=== PATIENT | male | born 1970 | race Caucasian/White ===

== ENCOUNTER 2018-11-16 09:04 | Outpatient (CLI) | payer MEDICARE, MEDICAID ==
[2018-11-16 13:32] LABS: BASOPHILS % (AUTO) 0.5 %; EOSINOPHILS # (AUTO) 0.1 10^3/uL (0.0-0.7); EOSINOPHILS % (AUTO) 1.5 %; HGB - HEMOGLOBIN 15.6 g/dL (14.0-18.0); LYMPHOCYTES # (AUTO) 1.1 10^3/uL (1.5-3.5); LYMPHOCYTES % (AUTO) 18.4 %; MEAN CORPUSCULAR HEMOGLOBIN 32.4 pg (27.0-31.0); MEAN CORPUSCULAR HGB CONC 35.2 g/dL (32.0-36.0); MEAN CORPUSCULAR VOLUME 92.2 fL (80.0-94.0); MEAN PLATELET VOLUME 7.6 fL (7.4-11.4); MONOCYTES # (AUTO) 0.4 10^3/uL (0.0-1.0); MONOCYTES % (AUTO) 6.8 %; NEUTROPHILS # (AUTO) 4.2 10^3/uL (1.5-6.6); NEUTROPHILS % (AUTO) 72.8 %; PLT - PLATELET COUNT 333 10^3/uL (130-450); RED BLOOD COUNT 4.81 10^6/uL (4.70-6.10); RED CELL DISTRIBUTION WIDTH 13.6 % (12.0-15.0); WHITE BLOOD COUNT 5.7 x10^3/uL (4.8-10.8)
[2018-11-16 14:18] LABS: ALBUMIN 4.2 g/dL (3.2-5.5); ALBUMIN/GLOBULIN RATIO 1.3 (1.0-2.2); ALKALINE PHOSPHATASE 67 IU/L (42-121); ALT ALANINE AMINOTRANSFERASE 21 IU/L (10-60); AST ASPARTATE AMINOTRANSFERASE 21 IU/L (10-42); BILIRUBIN,TOTAL 0.7 mg/dL (0.2-1.0); BUN - BLOOD UREA NITROGEN 12 mg/dL (6-20); CALCIUM 9.1 mg/dL (8.5-10.3); CARBON DIOXIDE - CO2 29 mmol/L (21-32); CHLORIDE 102 mmol/L (101-111); CHOL/HDL RATIO 4.6 (<5.0); CHOLESTEROL 216 mg/dL; CREATININE 0.9 mg/dL (0.6-1.2); GFR - MDRD 90 (>89); GLUCOSE 90 mg/dL (70-100); HDL CHOLESTEROL 47 mg/dL; LDL CHOLESTEROL,CALCULATED 155 mg/dL; LDL/HDL RATIO 3.3 (<3.6); SODIUM 135 mmol/L (135-145); TOTAL PROTEIN 7.4 g/dL (6.7-8.2); VLDL CHOLESTEROL 14 mg/dL
[2018-11-16 17:56] LABS: HB2 TOTAL 16.4 g/dL; HEMOGLOBIN A1C 0.62 g/dL; HEMOGLOBIN A1C % 5.6 % (4.6-6.2)
== END 2018-11-16 23:59 | disposition home or self-care (01) ==
LOC: LAB.N 09:04
PROVIDERS: ATTEND Licensed Practical Nurse
DX: Z79.899 Other long term (current) drug therapy (principal)
CPT/HCPCS: 36415; 80053; 80061; 83036; 83721; 84443; 85025

== ENCOUNTER 2019-09-09 21:22 | Emergency (ER) | payer MEDICARE, MEDICAID ==
--- NOTE | 2019-09-09 22:04 | ED Physician Documentation ---
PD HPI ABD PAIN - Stated complaint Stated Complaint: CONSTIPATION - Chief complaint Chief Complaint: Abd Pain - History obtained from History obtained from: Patient, Family - History of Present Illness Timing - onset: How many days ago (4) Timing - duration: Days (4) Timing - details: Gradual onset Severity Comments: moderate constipation Quality: Fullness/distended Location: All over / everywhere Radiation: Other (none) Improved by: Other (nothing) Worsened by: Eating Associated symptoms: Nausea, Constipation, Near syncope / syncope. No: Fever, Vomiting, Hematemesis, Diarrhea, Melena, Hematochezia, Dysuria, Hematuria, Chest pain Similar symptoms before: Has not had sx before Recently seen: Not recently seen - Treatment prior to arrival Treatment prior to arrival: dulcolax and seroquel Review of Systems Ten Systems: 10 systems reviewed and negative Constitutional: denies: Fever Cardiac: reports: Reviewed and negative Respiratory: reports: Reviewed and negative GI: reports: Abdominal Pain, Nausea, Constipation. denies: Abdominal Swelling, Vomiting, Diarrhea, Hematemesis, Bloody / black stool : reports: Reviewed and negative Skin: reports: Reviewed and negative Musculoskeletal: reports: Reviewed and negative Neurologic: reports: Reviewed and negative Psychiatric: reports: Anxiety Endocrine: reports: Reviewed and negative PD PAST MEDICAL HISTORY - Past Medical History Past Medical History: Yes - Past Surgical History Past Surgical History: Yes General: Splenectomy - Present Medications Home Medications: Ambulatory Orders Medication Instructions Recorded Confirmed Aripiprazole [Abilify] 15 mg DAILY 04/15/14 04/15/14 QUEtiapine [SEROquel] 200 mg QPM 04/15/14 04/15/14 Polyethylene Glycol 3350 [Miralax] 17 gm PO DAILY PRN #1 bottle 09/09/19 - Allergies Allergies/Adverse Reactions: Allergies Allergy/AdvReac Type Severity Reaction Status Date / Time No Known Drug Allergies Allergy Verified 04/15/14 12:51 - Social History Does the pt smoke?: Yes Smoking Status: Current every day smoker Does the pt drink ETOH?: No Does the pt have substance abuse?: No - Immunizations Immunizations are current?: No Immunizations: TDAP >10years/unknown PD ED PE NORMAL - Vitals Vital signs reviewed: Yes - General General: Alert and oriented X 3, No acute distress, Well developed/nourished, Other (pt is very sleepy) - HEENT HEENT: Atraumatic, Pharynx benign - Neck Neck: Supple, no meningeal sign - Cardiac Cardiac: RRR - Respiratory Respiratory: No respiratory distress - Abdomen Abdomen: Soft, Non distended, Other (mild diffuse tenderness ) - Male Male : Deferred - Derm Derm: Normal color, Warm and dry, No rash - Extremities Extremities: No deformity - Neuro Neuro: Alert and oriented X 3 Eye Opening: Spontaneous Motor: Obeys Commands Verbal: Oriented GCS Score: 15 - Psych Psych: Normal mood, Other (flat affect ) PD ED PE EXPANDED - Rectal Rectal: Normal Tone, Other (no fecal impaction, no blood ). No: Mass Results - Vitals Vitals: Vital Signs - 24 hr 09/10/19 00:07 Heart Rate 71 Respiratory 16 Rate Blood Pressure 122/86 H O2 Saturation 99 Oxygen O2 Source Room air - EKG (time done) 21:28 Rate: Rate (enter#) (66) Rhythm: NSR Gard[place]: Normal Intervals: Normal PA QRS: Normal Ischemia: Other (minimal ST elevation in anterior leads, ST depression minimal in inferior leads, no t wave abnormalities, no stemi ) Computer interpretation: Agree with computer PD MEDICAL DECISION MAKING - ED course Complexity details: reviewed results, re-evaluated patient, considered differential, d/w patient, d/w family ED course: 49 y/o M with hx and exam as documented. Likely syncopal episode from either overdosing on his seroquel today or straining to have a BM. He has normal EKg and normal sinus rhythm on the monitor. Thus suspect this was medication related. His exam here is benign except pt is very sedate. He admits to taking 4 of his seroquel for sleep to help with his abdominal discomfort from constipation. Pt here has no evidence of impaction. He was given an enema and had a large BM with relief of his constipation and his pain has resolved. Pt is stable for discharge with continued supportive care for constipation. Departure - Departure Disposition: 01 Home, Self Care Clinical Impression: Constipation Qualifiers: Constipation type: unspecified constipation type Qualified Code(s): K59.00 - Constipation, unspecified Medication adverse effect Qualifiers: Encounter type: initial encounter Qualified Code(s): T50.905A - Adverse effect of unspecified drugs, medicaments and biological substances, initial encounter Condition: Stable Record reviewed to determine appropriate education?: Yes Instructions: ED Constipation Follow-Up: your, doctor [Other] Prescriptions: Polyethylene Glycol 3350 [Miralax] 17 gm PO DAILY PRN #1 bottle PRN Reason: Constipation Comments: You were evaluated in the ED for constipation which improved with an enema. Take miralax as well as your stool softener for constipation. Follow up with your primary care doctor. If you have worsening abdominal pain or vomiting return to the ED. Discharge Date/Time: 09/10/19 00:16
[2019-09-09] MEDS ORDERED: SOAP SUDS ENEMA 1 EACH RC ONE (22:28)
[2019-09-10 00:08] VITALS: BP 122/86
== END 2019-09-10 00:16 | disposition home or self-care (01) ==
LOC: ED 21:22
DX: K59.00 Constipation, unspecified (principal); R55 Syncope and collapse; T43.591A Poisoning by other antipsychotics and neuroleptics, accidental (unintentional), initial encounter; F17.200 Nicotine dependence, unspecified, uncomplicated; G47.00 Insomnia, unspecified; F41.9 Anxiety disorder, unspecified
CPT/HCPCS: 93005; 99282; 99283; 99284; A9270

== ENCOUNTER 2019-09-10 01:47 | Outpatient (CLI) | payer MEDICARE, MEDICAID | END 2019-09-10 01:48 | disposition critical access hospital (66) | LOC: EMS 01:47 | PROVIDERS: ATTEND Surgery | DX: R68.89 Other general symptoms and signs (principal) | CPT/HCPCS: A0425; A0429 ==

== ENCOUNTER 2019-09-10 02:10 | Emergency (ER) | payer MEDICARE, MEDICAID ==
[2019-09-10] MEDS ORDERED: diphenhydrAMINE 25 MG CAPSULE PO STA (02:17)
--- NOTE | 2019-09-10 02:20 | ED Physician Documentation ---
History of Present Illness - Stated complaint Stated Complaint: DIFF SLEEPING/ MILD PSYCHOSIS - History obtained from History obtained from: Patient, EMS - History of Present Illness Timing: Chronic (for years) Severity Comments: moderate Quality: insomnia Radiates to: no pain or radiation Improved by: seroquel but he already took his dose earlier tonight Worsened by: he was in the ED earlier tonight which changed his sleep schedule and he took his seroquel too early so now doesn't know what to take for sleep Associated symptoms: insomnia, anxiety. reports his constipation and abdominal pain have resolved. - Treatment prior to arrival Treatment prior to arrival: seroquel earlier today Review of Systems Ten Systems: 10 systems reviewed and negative Constitutional: reports: Reviewed and negative Cardiac: reports: Reviewed and negative Respiratory: reports: Reviewed and negative GI: reports: Reviewed and negative : reports: Reviewed and negative Neurologic: reports: Reviewed and negative Psychiatric: reports: Anxiety, Insomnia Endocrine: reports: Reviewed and negative PD PAST MEDICAL HISTORY - Past Medical History Past Medical History: Yes Psych: Anxiety, Other (insomnia) - Past Surgical History Past Surgical History: Yes General: Splenectomy - Present Medications Home Medications: Ambulatory Orders Medication Instructions Recorded Confirmed Aripiprazole [Abilify] 15 mg DAILY 04/15/14 04/15/14 QUEtiapine [SEROquel] 200 mg QPM 04/15/14 04/15/14 Polyethylene Glycol 3350 [Miralax] 17 gm PO DAILY PRN #1 bottle 09/09/19 - Allergies Allergies/Adverse Reactions: Allergies Allergy/AdvReac Type Severity Reaction Status Date / Time No Known Drug Allergies Allergy Verified 04/15/14 12:51 - Social History Does the pt smoke?: Yes Smoking Status: Current every day smoker Does the pt drink ETOH?: No Does the pt have substance abuse?: No - Immunizations Immunizations are current?: No Immunizations: TDAP >10years/unknown PD ED PE NORMAL - Vitals Vital signs reviewed: Yes - General General: Alert and oriented X 3, No acute distress, Well developed/nourished - HEENT HEENT: Atraumatic, Pharynx benign - Neck Neck: Supple, no meningeal sign, No JVD - Cardiac Cardiac: RRR - Respiratory Respiratory: No respiratory distress - Abdomen Abdomen: Soft, Non tender, Non distended - Male Male : Deferred - Rectal Rectal: Deferred - Derm Derm: Normal color, Warm and dry, No rash - Extremities Extremities: No deformity - Neuro Neuro: Alert and oriented X 3, Normal speech Eye Opening: Spontaneous Motor: Obeys Commands Verbal: Oriented GCS Score: 15 - Psych Psych: Normal mood, Normal affect Results - Vitals Vitals: Vital Signs - 24 hr 09/10/19 02:19 Temperature 36.6 C Heart Rate 65 Respiratory 15 Rate Blood Pressure 117/88 H O2 Saturation 100 Oxygen O2 Source Room air PD MEDICAL DECISION MAKING - ED course Complexity details: considered differential, d/w patient ED course: 49 y/o M with hx of chronic insomnia reports it is worse today because he was in the ED earlier tonight for constipation and took his seroquel at the wrong time. Does not know what else he can take for sleep. Pt is known to me, I cared for him earlier tonight for constipation and pt was given an enema with relief of symptoms. He denies abdominal pain or constipation symptoms. He has melatonin at home but didn't take it. I advised he can try the melatonin and also try benadryl OTC for sleep. Given a dose of benadryl here. He is stable for discharge. Departure - Departure Disposition: 01 Home, Self Care Clinical Impression: Insomnia Qualifiers: Insomnia type: unspecified Qualified Code(s): G47.00 - Insomnia, unspecified Condition: Stable Record reviewed to determine appropriate education?: Yes Instructions: ED Insomnia Follow-Up: your, doctor [Other] - As Needed Comments: You were given some benadryl in the ED today for insomnia. In the future you should try taking your melatonin at home for sleep. Discharge Date/Time: 09/10/19 02:33
[2019-09-10 02:23] VITALS: BP 117/88
== END 2019-09-10 02:33 | disposition home or self-care (01) ==
LOC: EDUNIT# → ED 02:10
DX: G47.00 Insomnia, unspecified (principal); F41.9 Anxiety disorder, unspecified; F17.200 Nicotine dependence, unspecified, uncomplicated
CPT/HCPCS: 99282; 99284

== ENCOUNTER 2021-02-01 07:00 | Outpatient (CLI) | payer MEDICARE, MEDICAID ==
--- NOTE | 2021-02-01 10:56 | XRAY Report ---
PROCEDURE: Lumbar Spine 2 View INDICATIONS: LOW BACK PX TECHNIQUE: 3 views of the lumbar spine were acquired. COMPARISON: None. FINDINGS: Bones: 5 [id number] vertebrae are present. There is normal bony alignment. No vertebral body compression fractures. No suspicious bony lesions. Soft tissues: Overlying bowel gas pattern is normal. No suspicious soft tissue calcifications. IMPRESSION: No trauma found, source of current pain is not identified. Reviewed by: Uri Perez MD on 02/01/2021 10:55 AM PDT Approved by: Uri Perez MD on 02/01/2021 10:55 AM PDT Station ID: [id number]
== END 2021-02-01 23:59 | disposition home or self-care (01) ==
LOC: DI.N 07:00
PROVIDERS: ATTEND Family Medicine
DX: M54.5 Low back pain (principal)

== ENCOUNTER 2021-02-05 08:00 | Outpatient (CLI) | payer MEDICARE, MEDICAID | END 2021-02-05 23:59 | disposition home or self-care (01) | LOC: LAB.N 08:00 | PROVIDERS: ATTEND Family Medicine | DX: K52.9 Noninfective gastroenteritis and colitis, unspecified (principal) | CPT/HCPCS: 81599; 83630; 87045; 87046; 87329; 87427; 87493 ==

== ENCOUNTER 2021-08-03 08:50 | Outpatient (CLI) | payer MEDICARE, MEDICAID ==
[2021-08-03 14:44] LABS: H. PYLORIS ANTIGEN STL NEGATIVE (Negative)
== END 2021-08-03 23:59 ==
LOC: LAB.N 08:50
PROVIDERS: ATTEND Family Medicine
DX: R19.7 Diarrhea, unspecified (principal)
CPT/HCPCS: 83993; 87045; 87046; 87177; 87209; 87329; 87338; 87493

== ENCOUNTER 2022-02-03 09:04 | Outpatient (CLI) | payer MEDICARE, MEDICAID ==
[2022-02-03 10:18] VITALS: BP 115/73
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
== END 2022-02-03 09:05 | disposition home or self-care (01) ==
LOC: SC 09:04
PROVIDERS: ATTEND Nurse Practitioner Family
DX: G47.00 Insomnia, unspecified (principal); G47.8 Other sleep disorders; R41.89 Other symptoms and signs involving cognitive functions and awareness; F17.210 Nicotine dependence, cigarettes, uncomplicated
CPT/HCPCS: 99203; G0463; 99212

== ENCOUNTER 2022-02-21 20:40 | Outpatient (CLI) | payer MEDICARE, MEDICAID | END 2022-02-21 20:41 | disposition home or self-care (01) | LOC: SC 20:40 | PROVIDERS: ATTEND Nurse Practitioner Family | DX: G47.33 Obstructive sleep apnea (adult) (pediatric) (principal) | CPT/HCPCS: 95810 ==

== ENCOUNTER 2022-02-28 08:00 | Outpatient (CLI) | payer MEDICARE, MEDICAID | END 2022-02-28 23:59 | disposition home or self-care (01) | LOC: LAB 08:00 | PROVIDERS: ATTEND Physician Assistant Medical | DX: Z20.822 Contact with and (suspected) exposure to COVID-19 (principal) ==

== ENCOUNTER 2022-09-02 08:39 | Outpatient (CLI) | payer MEDICARE, MEDICAID ==
[2022-09-02 18:33] LABS: BASOPHILS % (AUTO) 0.5 %; EOSINOPHILS # (AUTO) 0.1 10^3/uL (0.0-0.7); EOSINOPHILS % (AUTO) 1.9 %; HCT - HEMATOCRIT 44.9 % (42.0-52.0); HGB - HEMOGLOBIN 15.1 g/dL (14.0-18.0); LYMPHOCYTES # (AUTO) 1.3 10^3/uL (1.5-3.5); LYMPHOCYTES % (AUTO) 21.8 %; MEAN CORPUSCULAR HEMOGLOBIN 31.3 pg (27.0-31.0); MEAN CORPUSCULAR HGB CONC 33.6 g/dL (32.0-36.0); MEAN CORPUSCULAR VOLUME 93.2 fL (80.0-94.0); MEAN PLATELET VOLUME 9.4 fL (7.4-11.4); MONOCYTES # (AUTO) 0.4 10^3/uL (0.0-1.0); MONOCYTES % (AUTO) 7.3 %; NEUTROPHILS # (AUTO) 3.9 10^3/uL (1.5-6.6); NEUTROPHILS % (AUTO) 68.2 %; PLT - PLATELET COUNT 335 10^3/uL (130-450); RED BLOOD COUNT 4.82 10^6/uL (4.70-6.10); RED CELL DISTRIBUTION WIDTH 13.2 % (12.0-15.0); WHITE BLOOD COUNT 5.7 x10^3/uL (4.8-10.8)
[2022-09-02 18:40] LABS: ALBUMIN 4.2 g/dL (3.2-5.5); ALBUMIN/GLOBULIN RATIO 1.3 (1.0-2.2); ALKALINE PHOSPHATASE 59 IU/L (42-121); ALT ALANINE AMINOTRANSFERASE 22 IU/L (10-60); AST ASPARTATE AMINOTRANSFERASE 23 IU/L (10-42); BILIRUBIN,TOTAL 0.7 mg/dL (0.2-1.0); BUN - BLOOD UREA NITROGEN 17 mg/dL (6-20); CALCIUM 9.3 mg/dL (8.5-10.3); CARBON DIOXIDE - CO2 29 mmol/L (21-32); CHLORIDE 99 mmol/L (101-111); CHOLESTEROL 216 mg/dL; GFR - MDRD 78 (>89); GLUCOSE 93 mg/dL (70-100); HDL CHOLESTEROL 54 mg/dL; LDL CHOLESTEROL,CALCULATED 150 mg/dL; LDL/HDL RATIO 2.8 (<3.6); POTASSIUM 4.6 mmol/L (3.5-5.0); SODIUM 136 mmol/L (135-145); TOTAL PROTEIN 7.5 g/dL (6.7-8.2); TRIGLYCERIDES 61 mg/dL; VLDL CHOLESTEROL 12 mg/dL
[2022-09-02 18:51] LABS: THYROID STIMULATING HORMONE 1.01 uIU/mL (0.34-5.60)
[2022-09-02 21:36] LABS: ESTIMATED AVERAGE GLUCOSE 128 mg/dL (70-100); HEMOGLOBIN A1c% 6.1 % (4.27-6.07)
== END 2022-09-02 08:40 | disposition home or self-care (01) ==
LOC: LAB.N 08:39
PROVIDERS: ATTEND Internal Medicine
DX: F32.A Depression, unspecified (principal); Z51.81 Encounter for therapeutic drug level monitoring; Z13.220 Encounter for screening for lipoid disorders; Z12.5 Encounter for screening for malignant neoplasm of prostate; Z13.0 Encounter for screening for diseases of the blood and blood-forming organs and certain disorders involving the immune mechanism
CPT/HCPCS: 36415; 80053; 80061; 83036; 84443; 85025; G0103; 83721; 84153

== ENCOUNTER 2022-11-24 12:59 | Outpatient (CLI) | payer MEDICARE, MEDICAID ==
--- NOTE | 2022-11-24 17:48 | XRAY Report ---
PROCEDURE: Knee 2 View RT INDICATIONS: KNEE PAIN, RIGHT TECHNIQUE: 2 views of the right knee(s) were acquired. COMPARISON: None. FINDINGS: Bones: No fractures or dislocations. No suspicious bony lesions. Fracture deformity noted in the d istal right femoral diaphysis transfixed by intramedullary minnie and fixation screws. Medial compartmen celina moderate joint space narrowing. No acute fracture. No marginal osteophytes Soft tissues: No joint effusion. No suspicious soft tissue calcifications. IMPRESSION: Medial compartment osteoarthritis, moderate Reviewed by: Raghav Bradshaw MD on 11/24/2022 4:46 PM AKST Approved by: Raghav Bradshaw MD on 11/24/2022 4:46 PM AKST Station ID: [id number]
--- NOTE | 2022-11-24 17:56 | XRAY Report ---
PROCEDURE: Hip w/Pelvis 2-3V RT INDICATIONS: HIP PAIN, RIGHT TECHNIQUE: AP pelvis with lateral view(s) of the right hip(s). COMPARISON: None. FINDINGS: Bones: No fractures or dislocations. Pelvic ring appears intact. No suspicious bony lesions. Righ t femoral intramedullary minnie and fixation screw. Old right superior pubic rami healed fracture deform ity. No evidence of acute fracture. Mild bilateral acetabular joint space narrowing Soft tissues: The visualized bowel gas pattern is normal. No suspicious soft tissue calcifications. IMPRESSION: Mild bilateral acetabular joint space narrowing Reviewed by: Raghav Bradshaw MD on 11/24/2022 4:55 PM AKST Approved by: Raghav Bradshaw MD on 11/24/2022 4:55 PM AKST Station ID: [id number]
== END 2022-11-24 13:00 | disposition home or self-care (01) ==
LOC: DI 12:59
PROVIDERS: ATTEND Internal Medicine
DX: M16.11 Unilateral primary osteoarthritis, right hip (principal); M17.11 Unilateral primary osteoarthritis, right knee

== ENCOUNTER 2023-10-02 13:37 | Outpatient (CLI) | payer MEDICARE, MEDICAID ==
[2023-10-02 18:01] LABS: BASOPHILS % (AUTO) 0.6 %; EOSINOPHILS # (AUTO) 0.1 10^3/uL (0.0-0.7); EOSINOPHILS % (AUTO) 1.9 %; HCT - HEMATOCRIT 43.9 % (42.0-52.0); HGB - HEMOGLOBIN 15.1 g/dL (14.0-18.0); LYMPHOCYTES # (AUTO) 1.7 10^3/uL (1.5-3.5); LYMPHOCYTES % (AUTO) 25.3 %; MEAN CORPUSCULAR HEMOGLOBIN 31.2 pg (27.0-31.0); MEAN CORPUSCULAR HGB CONC 34.4 g/dL (32.0-36.0); MEAN CORPUSCULAR VOLUME 90.7 fL (80.0-94.0); MEAN PLATELET VOLUME 9.5 fL (7.4-11.4); MONOCYTES # (AUTO) 0.5 10^3/uL (0.0-1.0); MONOCYTES % (AUTO) 7.7 %; NEUTROPHILS # (AUTO) 4.3 10^3/uL (1.5-6.6); NEUTROPHILS % (AUTO) 64.4 %; PLT - PLATELET COUNT 359 10^3/uL (130-450); RED BLOOD COUNT 4.84 10^6/uL (4.70-6.10); RED CELL DISTRIBUTION WIDTH 13.2 % (12.0-15.0); WHITE BLOOD COUNT 6.7 x10^3/uL (4.8-10.8)
[2023-10-02 18:33] LABS: ALBUMIN 4.7 g/dL (3.2-5.5); ALBUMIN/GLOBULIN RATIO 1.6 (1.0-2.2); ALKALINE PHOSPHATASE 62 IU/L (42-121); ALT ALANINE AMINOTRANSFERASE 23 IU/L (10-60); AST ASPARTATE AMINOTRANSFERASE 29 IU/L (10-42); BILIRUBIN,TOTAL 0.6 mg/dL (0.2-1.0); BUN - BLOOD UREA NITROGEN 14 mg/dL (6-20); CALCIUM 9.9 mg/dL (8.5-10.3); CARBON DIOXIDE - CO2 31 mmol/L (21-32); CHLORIDE 100 mmol/L (101-111); CHOL/HDL RATIO 4.3 (<5.0); CHOLESTEROL 255 mg/dL; CREATININE 1.1 mg/dL (0.6-1.3); GFR - MDRD 70 (>89); GLUCOSE 84 mg/dL (74-104); HDL CHOLESTEROL 60 mg/dL; LDL CHOLESTEROL,CALCULATED 178 mg/dL; POTASSIUM 4.2 mmol/L (3.5-4.5); SODIUM 136 mmol/L (135-145); TOTAL PROTEIN 7.7 g/dL (6.4-8.9); TRIGLYCERIDES 83 mg/dL (48-352); VLDL CHOLESTEROL 17 mg/dL
[2023-10-02 18:43] LABS: THYROID STIMULATING HORMONE 1.68 uIU/mL (0.34-5.60)
[2023-10-02 21:11] LABS: ESTIMATED AVERAGE GLUCOSE 117 mg/dL (70-100); HEMOGLOBIN A1c% 5.7 % (4.27-6.07)
== END 2023-10-02 13:38 | disposition home or self-care (01) ==
LOC: LAB.N 13:37
PROVIDERS: ATTEND Internal Medicine
DX: K59.03 Drug induced constipation (principal); Z79.899 Other long term (current) drug therapy; Z12.5 Encounter for screening for malignant neoplasm of prostate
CPT/HCPCS: 36415; 80053; 80061; 83036; 84443; 85025; G0103; 82043; 82570; 83721; 84153

== ENCOUNTER 2024-05-06 10:04 | Outpatient (CLI) | payer MEDICARE, MEDICAID ==
[2024-05-06 12:24] LABS: ALBUMIN 4.8 g/dL (3.2-5.5); ALBUMIN/GLOBULIN RATIO 1.8 (1.0-2.2); ALKALINE PHOSPHATASE 58 IU/L (42-121); ALT ALANINE AMINOTRANSFERASE 20 IU/L (10-60); AST ASPARTATE AMINOTRANSFERASE 22 IU/L (10-42); BILIRUBIN,TOTAL 0.5 mg/dL (0.2-1.0); BUN - BLOOD UREA NITROGEN 10 mg/dL (6-20); CALCIUM 9.9 mg/dL (8.5-10.3); CARBON DIOXIDE - CO2 30 mmol/L (21-32); CHLORIDE 100 mmol/L (101-111); CHOL/HDL RATIO 2.8 (<5.0); CHOLESTEROL 144 mg/dL; CREATININE 1.1 mg/dL (0.6-1.3); GFR - MDRD 70 (>89); GLUCOSE 102 mg/dL (74-104); HDL CHOLESTEROL 52 mg/dL; LDL CHOLESTEROL,CALCULATED 81 mg/dL; LDL/HDL RATIO 1.6 (<3.6); POTASSIUM 4.1 mmol/L (3.5-4.5); SODIUM 133 mmol/L (135-145); TOTAL PROTEIN 7.5 g/dL (6.4-8.9); TRIGLYCERIDES 55 mg/dL; VLDL CHOLESTEROL 11 mg/dL
[2024-05-06 12:26] LABS: ESTIMATED AVERAGE GLUCOSE 108 mg/dL (70-100); HEMOGLOBIN A1c% 5.4 % (4.27-6.07)
== END 2024-05-06 10:05 | disposition home or self-care (01) ==
LOC: LAB.N 10:04
PROVIDERS: ATTEND Nurse Practitioner Psychiatric/Mental Health
DX: F06.0 Psychotic disorder with hallucinations due to known physiological condition (principal); F33.41 Major depressive disorder, recurrent, in partial remission
CPT/HCPCS: 36415; 80053; 80061; 83036; 83721

== ENCOUNTER 2024-07-12 12:15 | Outpatient (CLI) | payer MEDICARE, MEDICAID | END 2024-07-12 12:30 | disposition home or self-care (01) | LOC: LAB.N 12:15 | PROVIDERS: ATTEND Physician Assistant | DX: L02.519 Cutaneous abscess of unspecified hand (principal) | CPT/HCPCS: 87070; 87181; 87205 ==

== ENCOUNTER 2024-07-12 19:50 | Emergency (ER) | payer MEDICARE, MEDICAID ==
[2024-07-12 20:08] VITALS: BP 134/71; O2SAT 100
--- NOTE | 2024-07-12 20:09 | ED Physician Documentation ---
PD HPI SKIN - Stated complaint Stated Complaint: LT HAND INJ - Chief complaint Chief Complaint: Ext Problem - History obtained from History obtained from: Patient - Additional information Additional information: 54-year-old male presents for help with a left index finger wound. He was seen in the walk-in clinic earlier today and had a bandage applied. He states the Band-Aid fell off and he needs help with reapplying a bandage. Review of Systems Constitutional: denies: Fever, Chills : denies: Dysuria, Frequency, Hesitancy Skin: reports: Laceration (s). denies: Rash, Lesions PD PAST MEDICAL HISTORY - Past Medical History Past Medical History: Yes Psych: Anxiety, Other - Past Surgical History Past Surgical History: Yes General: Splenectomy - Present Medications Home Medications: Ambulatory Orders Medication Instructions Recorded Confirmed Aripiprazole [Abilify] 15 mg DAILY 04/15/14 07/12/24 QUEtiapine [SEROquel] 200 mg QPM 04/15/14 07/12/24 - Allergies Allergies/Adverse Reactions: Allergies Allergy/AdvReac Type Severity Reaction Status Date / Time No Known Drug Allergies Allergy Verified 07/12/24 19:58 - Social History Does the pt smoke?: Yes Smoking Status: Current every day smoker Does the pt drink ETOH?: No Does the pt have substance abuse?: No - Immunizations Immunizations are current?: No Immunizations: TDAP >10years/unknown PD ED PE NORMAL - Vitals Vital signs reviewed: Yes - General General: Alert and oriented X 3, No acute distress, Well developed/nourished - Cardiac Cardiac: RRR - Respiratory Respiratory: No respiratory distress, Clear bilaterally - Abdomen Abdomen: Soft, Non tender, Non distended - Derm Derm: Normal color, Warm and dry, Other (2cm linear laceration lateral L index finger with underlying granulated tissue) - Neuro Neuro: Alert and oriented X 3, 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 Wound is clean, dry, appears to be older than 24hrs and not amenable to sutures. Fresh bandage applied by nursing staff. No evidence of infection at this time. Departure - Departure Disposition: 01 Home, Self Care Clinical Impression: Open wound of finger without complication Condition: Stable Instructions: Wound Care Comments: Keep your wound clean and dry. You may get bacitracin from the pharmacy to apply to your wound if you would like. Follow-up as scheduled with your wound care clinic. Forms: PCP List Discharge Date/Time: 07/12/24 20:17
[2024-07-12] MEDS: BACITRACIN ZINC OINT 1 PACKET TOP STA (20:11)
== END 2024-07-12 20:17 | disposition home or self-care (01) ==
LOC: ED 19:50
DX: Z48.00 Encounter for change or removal of nonsurgical wound dressing (principal); S61.211D Laceration without foreign body of left index finger without damage to nail, subsequent encounter; X58.XXXD Exposure to other specified factors, subsequent encounter; F17.200 Nicotine dependence, unspecified, uncomplicated; L02.519 Cutaneous abscess of unspecified hand
CPT/HCPCS: 87070; 87181; 87205; 99282; 99283; A9270